=== PATIENT | male | born 1960 ===

== ENCOUNTER 2018-10-14 11:41 | Emergency (ER) | payer BC, OTHER ==
[2018-10-14 12:41] VITALS: BP 141/84
--- NOTE | 2018-10-14 13:15 | UC ---
Respiratory Complaint HPI - HPI Summary HPI Summary: chest congestion / cough x 2 weeks cough is dry , + nasal congestion, pnd, sinus pressure, no fever, no chills + wheezing, no sob, no chest pain - History of Current Complaint Chief Complaint: UCRespiratory Stated Complaint: COUGH,SINUS Time Seen by Provider: 10/14/18 13:07 Hx Obtained From: Patient Onset/Duration: Gradual Onset, Lasting Weeks - 2, Still Present Timing: Constant Severity Initially: Moderate Severity Currently: Moderate Pain Intensity: 0 Character: Cough: Nonproductive Aggravating Factors: Exertion, Deep Breaths Alleviating Factors: Nothing Associated Signs And Symptoms: Positive: Wheezing, URI, Nasal Congestion. Negative: Dyspnea, Fever, Chills, Pleuritic Chest Pain, Hemoptysis, Dizziness, Calf Pain, Calf Swelling, Edema - Allergies/Home Medications Allergies/Adverse Reactions: Allergies Allergy/AdvReac Type Severity Reaction Status Date / Time No Known Allergies Allergy Verified 10/14/18 12:32 Home Medications: Home Medications Meloxicam 7.5 mg PO DAILY 10/14/18 [History Confirmed 10/14/18] PMH/Surg Hx/FS Hx/Imm Hx Previously Healthy: Yes - Surgical History Surgical History: Yes Surgery Procedure, Year, and Place: RIGHT TOTAL HIP - Family History Known Family History: Negative: Diabetes - Social History Alcohol Use: Rare Substance Use Type: None Smoking Status (MU): Heavy Every Day Tobacco Smoker Type: Cigarettes Amount Used/How Often: 1PPD Household Exposure Type: Cigarettes Review of Systems All Other Systems Reviewed And Are Negative: Yes Skin: Positive: Negative Eyes: Positive: Negative ENT: Positive: Nasal Discharge, Sinus Congestion, Sinus Pain/Tenderness Respiratory: Positive: Cough Cardiovascular: Positive: Negative Is Patient Immunocompromised?: No Physical Exam Triage Information Reviewed: Yes Appearance: Well-Appearing, No Pain Distress, Well-Nourished Vital Signs: Initial Vital Signs Temp 98.9 F 10/14/18 12:34 Pulse 73 10/14/18 12:34 Resp 18 10/14/18 12:34 BP 141/84 10/14/18 12:34 Pulse Ox 98 10/14/18 12:34 Vital Signs Reviewed: Yes Eye Exam: Normal Eyes: Positive: Conjunctiva Clear ENT: Positive: Normal ENT inspection, Hearing grossly normal, Pharynx normal Neck: Positive: Supple, Nontender, No Lymphadenopathy Respiratory: Positive: Chest non-tender, Lungs clear, Normal breath sounds, No respiratory distress Cardiovascular: Positive: RRR, No Murmur, Pulses Normal Bowel Sounds: Positive: Present UC Diagnostic Evaluation - Laboratory O2 Sat by Pulse Oximetry: 98 Respiratory Course/Dx - Differential Dx/Diagnosis Provider Diagnosis: Bronchitis Discharge - Sign-Out/Discharge Documenting (check all that apply): Patient Departure All imaging exams completed and their final reports reviewed: No Studies - Discharge Plan Condition: Stable Disposition: HOME Prescriptions: Albuterol HFA INHALER* [Ventolin HFA Inhaler*] 2 puff INH Q4H PRN #1 mdi PRN Reason: Wheezing Azithromycin TAB* [Zithromax TAB (Z-SHIRA) 250 mg #6 tabs] 2 tab PO .TODAY, THEN 1 DAILY #1 shira Patient Education Materials: Acute Bronchitis (ED) Referrals: No Primary Care Phys,NOPCP [Primary Care Provider] - If Needed - Billing Disposition and Condition Condition: STABLE Disposition: Home
== END 2018-10-14 13:24 | disposition home or self-care (01) ==
LOC: UCCORT 11:41
DX: J40 Bronchitis, not specified as acute or chronic (principal); F17.210 Nicotine dependence, cigarettes, uncomplicated
CPT/HCPCS: 99212; G0463

== ENCOUNTER 2019-04-24 09:41 | Emergency (ER) | payer BC ==
--- OUTSIDE RECORDS SUMMARY | 2019-04-24 10:15 | XMS REPORT | Continuity of Care Document ---
:1960 External Reference #:[id number] Author Name Maryellen Redding Care Team Providers Name Role Phone Edna Neville PA Care Team Information Radio Board Operator Announcer Unavailable Edna Neville PA Primary Care Physician Unavailable Payers Date Identification Numbers Payment Provider Subscriber Policy Number: [id number] [facility] Mony Bethea PayID: [id number] [address] [place] [address] Family History Date Family Member(s) Observation Comments Father due to COPD () Father 78 Mother due to Cancer () Mother 60 Social History Type Date Description Comments Sex Unknown Tobacco Use Start: Unknown Heavy tobacco smoker (more than 10 cigarettes/day) ETOH Use Rare Use Of Alcohol Recreational Drug Use Never Used Drugs Allergies, Adverse Reactions, Alerts Description No Known Drug Allergies Medications Active Medications SIG Qnty Indications Ordering Provider Date B/P Medication Unknown History Medications No Active Medications Unknown 05/04/2018 - 03/09/2019 Vital Signs Date Vital Result Comment 03/29/2019 1:59pm Weight 219.00 lb Height 69 inches 5'9" BMI (Body Mass Index) 32.3 kg/m2 BP Systolic 130 mmHg BP Diastolic 78 mmHg Heart Rate 73 /min O2 % BldC Oximetry 96 % Body Temperature 99.1 F Pain Level 0 03/09/2019 10:17am Weight 225.00 lb Height 69 inches 5'9" BMI (Body Mass Index) 33.2 kg/m2 BP Systolic 135 mmHg BP Diastolic 81 mmHg Heart Rate 87 /min O2 % BldC Oximetry 96 % Body Temperature 97.7 F [place] Score 18 Neck Circumference in inches 17.5 Pain Level 0 05/04/2018 4:28pm Weight 251.00 lb Height 69 inches 5'9" BMI (Body Mass Index) 37.1 kg/m2 BP Systolic 168 mmHg pt states his bp is high due to his weight gain BP Diastolic 102 mmHg pt states his bp is high due to his weight gain Heart Rate 73 /min O2 % BldC Oximetry 97 % Body Temperature 97.6 F Pain Level 0 Results Test Date Facility Test Result H/L Range Note Laboratory test 05/04/2018 [facility] Surgical SEE RESULT [address] [place] [address] [phone] 1 SEE RESULT BELOW Name: MONY BETHEA : [address]: Ernesto Cortez MD Acct: [id number] Unit: [id number] AGE: 57 Location: [facility] Re05/04/18 SEX: M Status: REG REF SPEC: [id number] JAQUAN: 05/04/18 [facility] DR: Ernesto Cortez MD REQ: [id number] RECD: 05/04/18 STATUS: SOUT _ ORDERED: LEVEL 4 COMMENTS: [id number] FINAL DIAGNOSIS Right lower gum, biopsy: -- Superficial squamous epithelium with acanthosis and marked hyperparakeratosis. See comment. Comment: The basilar aspect of the lesion cannot be evaluated due to superficial nature of the biopsy. A neoplastic lesion cannot be entirely excluded based on this examination. Clinical correlation and additional studies as warranted. Multiple level sections were examined in the evaluation of this specimen. CLINICAL HISTORY No history given GROSS DESCRIPTION The specimen is received in formalin labeled, Lesion on Right Lower Gum, and consists of a 0.4 by up to 0.2 x 0.1 cm ang[place]-white irregular soft tissue fragment which is inked and submitted entirely in one cassette. Signed by and Reported on: Tahir Card MD 10/12 1237 END OF REPORT DEPARTMENT OF PATHOLOGY, [address] [place] [address] Tahir Card M.D. Director [facility] # [id number] Procedures Date Code Description Status 03/13/2019 14156 Sleep Staging 4Or More Para Completed 03/09/2019 84395 Fiberoptic Laryngoscopy,Diag. Completed 05/04/2018 18603 Exc Of Lesion Of Mucosa/Submucosa,Vestibule Of Completed Mouth:W/Simple Rep Encounters Type Date Location Provider Dx Diagnosis Office Visit 03/09/2019 10:30a Main Office Kristy Coulter NP R06.83 Snoring G47.9 Sleep disorder, unspecified Plan of Treatment 03/09/2019 - Kristy Coulter, NPR06.83 [id number] Sleep disorder, unspecifiedNew Orders:PSG - Sleep Study, Scheduled: 03/13/19
--- OUTSIDE RECORDS SUMMARY | 2019-04-24 10:15 | XMS REPORT | Continuity of Care Document ---
:1960 External Reference #:[id number] Author Name Kristy Coulter NP Address [address] [place] [address] Care Team Providers Name Role Phone Edna Neville PA Care Team Information Head And Neck Surgeon Unavailable Edna Neville PA Primary Care Physician Unavailable Payers Date Identification Numbers Payment Provider Subscriber Policy Number: [id number] [facility] Mony Bethea PayID: [id number] [address] [place] [address] Family History Date Family Member(s) Observation Comments [...] Oximetry 96 % Body Temperature 97.7 F [place] Score 18 Neck Circumference in inches 17.5 [...] Result H/L Range Note Laboratory test 05/04/2018 [facility] Surgical SEE RESULT [address] [place] [address] [phone] 1 SEE RESULT BELOW Name: MONY BETHEA : [address]: Ernesto Cortez MD Acct: [id number] Unit: [id number] AGE: 57 Location: [facility] Re05/04/18 SEX: M Status: REG REF SPEC: [id number] JAQUAN: 05/04/18-1652 [facility] DR: Ernesto Cortez MD REQ: [id number] RECD: 05/04/18 STATUS: SOUT _ ORDERED: LEVEL 4 COMMENTS: [id number] FINAL DIAGNOSIS Right lower gum, biopsy: -- [...] 1237 END OF REPORT DEPARTMENT OF PATHOLOGY, [address] [place] [address] Tahir Card M.D. Director [facility] # [id number] Procedures Date Code Description Status 03/13/2019 84675 Sleep Staging 4Or More Para Completed 03/09/2019 05331 Fiberoptic Laryngoscopy,Diag. Completed 05/04/2018 48651 Exc Of Lesion Of Mucosa/Submucosa,Vestibule Of Completed Mouth:W/Simple Rep Encounters Type Date Location Provider Dx Diagnosis Office Visit 03/29/2019 Main Office Kristy Coulter, G47.33 Obstructive sleep 2:00p PROGRAM SUPPORT ASSISTANT apnea (adult) (pediatric) Office Visit 03/09/2019 Main Office Kristy Coulter, R06.83 Snoring 10:30a PROGRAM SUPPORT ASSISTANT G47.9 Sleep disorder, unspecified Plan of Treatment 03/09/2019 - Kristy Coulter, NPR06.83 QqwgusdV71.9 Sleep disorder, unspecifiedNew Orders:PSG - Sleep Study, Scheduled: 03/13/19
[2019-04-24 10:25] VITALS: BP 122/66
--- NOTE | 2019-04-24 10:35 | UC ---
General HPI - HPI Summary HPI Summary: sinus congestion that moved to chest and now having cough, congestion, sob and wheezing. no cp or fever. denies copd and asthma but is a smoker. hx same and inhaler plus steroids work well. onset yesterday. - History of Current Complaint Chief Complaint: UCRespiratory Stated Complaint: COUGH Time Seen by Provider: 04/24/19 10:29 Hx Obtained From: Patient Onset/Duration: Gradual Onset Timing: Constant Pain Intensity: 0 Associated Signs & Symptoms: Negative: Fever - Allergy/Home Medications Allergies/Adverse Reactions: Allergies Allergy/AdvReac Type Severity Reaction Status Date / Time No Known Allergies Allergy Verified 04/24/19 10:25 Home Medications: Home Medications Ibuprofen TAB* [Advil TAB*] 200 mg PO Q6H PRN 04/24/19 [History Confirmed ] Irbesartan/Hydrochlor 150/12.5 [Irbesartan/Hydrochlorothi 150-12.5 mg] 1 tab PO DAILY 04/24/19 [History Confirmed 04/24/19] PMH/Surg Hx/FS Hx/Imm Hx Cardiovascular History: Hypertension - Surgical History Surgical History: Yes Surgery Procedure, Year, and Place: RIGHT TOTAL HIP - Family History Known Family History: Negative: Diabetes - Social History Lives: With Family Alcohol Use: Rare Substance Use Type: None Smoking Status (MU): Heavy Every Day Tobacco Smoker Type: Cigarettes Amount Used/How Often: 1PPD Household Exposure Type: Cigarettes Review of Systems All Other Systems Reviewed And Are Negative: Yes ENT: Positive: Sinus Congestion Respiratory: Positive: Shortness Of Breath, Cough Cardiovascular: Negative: Palpitations, Chest Pain Physical Exam Triage Information Reviewed: Yes Appearance: Well-Appearing Vital Signs: Initial Vital Signs Temp 98.3 F 04/24/19 10:20 Pulse 65 04/24/19 10:20 Resp 22 04/24/19 10:20 BP 122/66 04/24/19 10:20 Pulse Ox 100 04/24/19 10:20 Vital Signs Reviewed: Yes Eyes: Positive: Conjunctiva Clear ENT: Positive: Pharynx normal, TMs normal. Negative: Nasal drainage Neck: Positive: Supple, Nontender, No Lymphadenopathy Respiratory: Positive: No respiratory distress, Decreased breath sounds, Wheezing. Negative: Crackles, Rhonchi Cardiovascular: Positive: RRR, No Murmur Abdomen Description: Positive: Nontender Musculoskeletal: Positive: ROM Intact Neurological: Positive: Alert Psychological: Positive: Age Appropriate Behavior Skin Exam: Normal Course/Dx - Course Course Of Treatment: pt declined tx here , will olive picker and start medications - Differential Dx - Multi-Symptom Differential Diagnoses: Other - no concern for pneumonia. - Diagnoses Provider Diagnosis: Bronchospasm with bronchitis, acute Discharge - Sign-Out/Discharge Documenting (check all that apply): Patient Departure All imaging exams completed and their final reports reviewed: No Studies - Discharge Plan Condition: Stable Disposition: HOME Prescriptions: Albuterol HFA INHALER* [Ventolin HFA Inhaler*] 2 puff INH Q6H #1 mdi predniSONE [Prednisone 20 MG TAB] 40 mg PO DAILY 5 Days #10 tablet Patient Education Materials: Acute Bronchitis (ED), Bronchospasm (ED) Referrals: Edna Pabon [Primary Care Provider] - 5 Days - Billing Disposition and Condition Condition: STABLE Disposition: Home
== END 2019-04-24 10:43 | disposition home or self-care (01) ==
LOC: UCCORT 09:41
DX: J20.9 Acute bronchitis, unspecified (principal); F17.210 Nicotine dependence, cigarettes, uncomplicated
CPT/HCPCS: 99212; G0463